=== PATIENT | female | born 1955 | race Caucasian/White ===

== ENCOUNTER 2022-09-22 17:12 | Inpatient (IN) | payer OTHER ==
[~2022-09-22] VITALS: Ht 152.4 cm; Wt 75.9 kg
--- NOTE | 2022-09-22 17:30 | NUR ---
C/O CHEST AND ABDOMINAL PAIN TODAY,SEEN AT AN URGENT CARE 3 DAYS AGO unable to care for self bs 170
--- NOTE | 2022-09-22 18:00 | NUR ---
RAILWAY SWITCH OPERATOR AT BEDSIDE FOR BLD COLLECTION
--- NOTE | 2022-09-22 18:04 | NUR ---
pt given water PO per dr ton milian
--- NOTE | 2022-09-22 18:11 | NUR ---
DR IRWIN NOTIFIED REGARDING LATEST VS
[2022-09-22 18:22] LABS: BASOPHILS # (AUTO) 0.1 K/uL (0.0-0.2); BASOPHILS % (AUTO) 0.2 % (0.0-2.0); HEMOGLOBIN 10.2 g/dL (11.5-14.8); MEAN CORPUSCULAR HGB CONC 31 g/dl (31.0-36.0)
[2022-09-22 18:28] LABS: EOSINOPHILS % (AUTO) 0.1 % (0.0-6.0); HEMATOCRIT 33 % (33-45); LYMPHOCYTES # (AUTO) 27.3 K/uL (0.8-4.8); LYMPHOCYTES % (AUTO) 55.3 % (20.0-44.0); MEAN CORPUSCULAR VOLUME 80 fL (82-100); MONOCYTES # (AUTO) 1.4 K/uL (0.1-1.30); MONOCYTES % (AUTO) 2.8 % (2.0-12.0); NEUTROPHILS # (AUTO) 20.6 K/uL (1.8-8.9); NEUTROPHILS % (AUTO) 41.6 % (43.0-81.0); PLATELET COUNT (AUTO) 115 K/uL (150-450); RED BLOOD CELL COUNT(AUTO) 4.16 MIL/uL (4.0-5.2)
[2022-09-22 18:30] LABS: CARBON DIOXIDE 16 mmol/L (21-32); CHLORIDE 94 mmol/L (98-107); CREATININE 1.9 mg/dL (0.6-1.3); GLUCOSE 81 mg/dL (74-106); POTASSIUM 4.6 mmol/L (3.5-5.1); SODIUM SERUM 130 mmol/L (136-145)
[2022-09-22] MEDS ORDERED: IV NS 0.9% 1,000 ML BAG IV ONE ×3 (18:30→21:30)
[2022-09-22 18:33] LABS: UREA NITROGEN, BLOOD 104 mg/dL (7-18); WHITE BLOOD COUNT (AUTO) 49.5 K/uL (4.3-11.0)
[2022-09-22 18:36] LABS: ALANINE AMINOTRANSFERASE 35 U/L (12-78); ALBUMIN 1.4 g/dL (3.4-5.0); ALKALINE PHOSPHATASE 278 U/L (46-116); ASPARTATE AMINOTRANSFERASE 202 U/L (15-37); BILIRUBIN,DIRECT 0.2 mg/dL (0.0-0.2); BILIRUBIN,TOTAL 0.4 mg/dL (0.2-1.0); LIPASE 61 U/L (73-393); TOTAL PROTEIN, SERUM 4.4 g/dL (6.4-8.2)
[2022-09-22] MEDS ORDERED: CITA20TA16 PO (18:46)
[2022-09-22] MEDS ORDERED: ATEN50TA PO (18:46)
[2022-09-22] MEDS ORDERED: ZOLP5TAB2 PO (18:46)
[2022-09-22] MEDS ORDERED: NAPR220C15 PO (18:46)
[2022-09-22] MEDS ORDERED: LISI-768 PO (18:46)
[2022-09-22] MEDS ORDERED: AMLO5TAB4 PO (18:46)
[2022-09-22 18:57] LABS: BAND % (MANUAL) 9 % (0.0-5.0); LYMPHOCYTES % (MANUAL) 18 % (16-48); METAMYELOCYTES % 1 % (0-0); MONOCYTES % (MANUAL) 4 % (0-11.0); MYELOCYTES % 4 % (0-0); NEUTROPHILS % (MANUAL) 64 (42-76)
--- NOTE | 2022-09-22 19:10 | NUR ---
MOVE SHEET SUBMITTED.
--- NOTE | 2022-09-22 19:13 | NUR ---
GARVEY CATH PLACED, COLLECTED URINE, SENT TO LAB
[2022-09-22] MEDS ORDERED: ACETAMINOPHEN ES 500 MG TABLET PO ONE (19:30)
[2022-09-22] MEDS ORDERED: ACETAMINOPHEN ES 500 MG TABLET ONE (19:34)
[2022-09-22 19:45] LABS: BILIRUBIN,URINE 2+ (NEGATIVE); COLOR,URINE DARK YELLOW (YELLOW); LEUKOCYTE ESTERASE ,URINE NEGATIVE (NEGATIVE); NITRITE, URINE NEGATIVE (NEGATIVE); PROTEIN,URINE 2+ mg/dl (NEGATIVE); UGLUCOSE NEGATIVE (NEGATIVE)
[2022-09-22] MEDS ORDERED: IV NS 0.9% 250 ML IV ONE (19:47)
[2022-09-22] MEDS ORDERED: IOHEXOL-350 100 ML VIAL IV ONE (19:47)
--- NOTE | 2022-09-22 19:47 | NUR ---
covid antigen swab collected, sent to lab
--- NOTE | 2022-09-22 19:55 | NUR ---
pt taken to ct via froylan
[2022-09-22 20:02] LABS: BACTERIA,URINE 2+ /HPF (None Seen); HYALINE CASTS, URINE Moderate /LPF (None Seen); MUCUS,URINE Moderate /LPF (None Seen); RBC,URINE 0-2 /HPF (0-2)
[2022-09-22] MEDS ORDERED: AZITHROMYCIN 500 MG in IV D5W 250 ML IV ONE (20:30)
[2022-09-22] MEDS ORDERED: PIPERACILLIN /TAZOBACTAM 3.375 G in IV D5W 50 ML IV ONE (20:30)
[2022-09-22] MEDS ORDERED: VANCOMYCIN 1 GM in IV D5W 250 ML IV ONE (20:30)
[2022-09-22] MEDS ORDERED: AZITHROMYCIN 500 MG VIAL ONE (20:31)
[2022-09-22] MEDS ORDERED: VANCOMYCIN 1 GM /D5W 250 ML PB IV ONE (20:31)
[2022-09-22] MEDS ORDERED: PIPERACI/TAZO 3.375GM/D5W 50ML PB IV ONE (20:32)
--- NOTE | 2022-09-22 20:42 | NUR ---
RM 110
--- NOTE | 2022-09-22 20:54 | NUR ---
CALL [facility] ANSWERING SERVICE FOR PEER TO PEER AND ADMISSION WITH DR FOSTER. SHE WILL HAVE US CONNECTED TO DR FOSTER
--- NOTE | 2022-09-22 21:06 | NUR ---
PEER TO PEER DONE BETWEEN DR FOSTER AND DR IRWIN
--- NOTE | 2022-09-22 22:54 | NUR ---
Pt transferred to [facility] via acls, accompanied by blaze Blake and EMT
[2022-09-22 23:00] VITALS: BP 91/31; TEMP 97.8; O2SAT 95
--- NOTE | 2022-09-22 23:00 | NUR ---
[facility] RN NOTES Admitted a 67 Y/O FEMALE A/OX3-4 ABLE TO MAKE NEEDS KNOWN ,LIVES ALONE , FROM HOME ADMITTED WITH ADMITTING DX OF SEPSIS , PTS IS UNDER RAZIGIE PLATING TANK OPERATOR OF DR SYDNIE ALEXANDRE . ADMISSION ROUTINE CARE RENDERED ASSESSMENT FROM HEAD TO TOE DONE NOTED WITH JEAN-PIERRE UNDERBREAST REDNESS , AND HEMORRHOIDS .V/S BP 91/39 ON 3LITERS VIA NC O2 SAT 88%, PTS WAS PLACE ON 10 LITERS VIA SIMPLE MASK , PTS WITH NKDA , NO PERTINENT HISTORY WITH IV PERIPHERAL ON LEFT AC g#20 AND LEFT HAND g#22 INTACT AND PATENT .WITH F/C INTACT AND PATENT DRAINING WITH YELLOWISH URINE OUTPUT , KEPT PTS COMFORTABLE AND DRY, WAITING FOR RAZIGIE ADMISSION ORDER.WILL CONTINUE TO MONITOR PTS.
--- NOTE | 2022-09-22 23:05 | NUR ---
report given to Christopher JORDAN
[2022-09-23] VITALS (29 sets, daily range): BP systolic 78–105; BP diastolic 35–56; TEMP 97.5–98.2; O2SAT 92–97
--- NOTE | 2022-09-23 | NUR ---
[facility] RN NOTES SPOKE TO DR PAUL RELAYED PTS CONDITION ,BP 88/44 WITH ORDER NOTED , CEFEPIME 1 GRAM Q 12HRS, IVF NS 125CC/HR ,[facility] STATUS DX SEPSIS , AZITHROMYCIN 500MG IV Q DAILY .VANCO TO BE DOSE BY PHARMACY . DIET 2 GRAMS SODIUM , NORCO 5/325 Q 4HRS PRN FOR MODERATE PAIN , NORCO 10/325 Q 4HRS PRN FOR SEVERE PAIN /ZOFRAN 4MG IV Q 6HRS PRN FOR N/V TYLENOL 650MG Q 4HRS PO FOR MILD PAIN OR FEVER . ALL ORDER NOTED A ND CARRIED OUT.WILL CONTINUE TO MONITOR PTS.
[2022-09-23] MEDS ORDERED: ACETAMINOPHEN 325 MG TABLET PO PRN (00:30)
[2022-09-23] MEDS ORDERED: CEFEPIME 1 GM VIAL IM SCH (00:30)
[2022-09-23] MEDS ORDERED: HYDROCODONE/APAP 10/325MG TABLET PO PRN (00:30)
[2022-09-23] MEDS ORDERED: ONDANSETRON HCL/PF 4 MG/2 ML VIAL IV PRN (00:30)
[2022-09-23] MEDS ORDERED: HYDROCODONE/APAP 5/325MG TABLET PO PRN (00:30)
[2022-09-23] MEDS ORDERED: CEFEPIME 1 GM in IV D5W 50 ML IV SCH (01:00)
[2022-09-23] MEDS ORDERED: CEFEPIME 1 GM VIAL IM ONE (01:00)
[2022-09-23] MEDS: IV NS 0.9% 1,000 ML IV PRN ×3 (01:13→17:53)
[2022-09-23] MEDS ORDERED: CEFEPIME 1 GM VIAL ONE (01:19)
--- NOTE | 2022-09-23 01:39 | NUR ---
[facility] RN NOTES SPOKE TO DR PAUL BLOOD PRESURE RELAYED AT 1AM 85/33 ON 8LI VIA FACEMASK AT 97% WITH ORDER TO GIVE NS 500MLVIA BOLUS ORDER NOTED AND CARRIED OUT.PTS AWAKE ALERT X3
--- NOTE | 2022-09-23 01:43 | NUR ---
[facility] RN NOTES SPOKE TO DR PAUL WITH ORDER TO D/C NS 500ML BOLUS INSTEAD GIVE ALBUMIN 50GRAMS IV X1 NOW ORDER NOTED AND CARRIED OUT.
[2022-09-23] MEDS ORDERED: ALBUMIN 25% 50 GM in PREMIX 1 EA IV ONE (02:00)
[2022-09-23] MEDS ORDERED: ALBUMIN 25% 200 ML IV ONE (02:25)
--- NOTE | 2022-09-23 02:30 | NUR ---
alberto rn notes pts c/o of nauseated zofran 4mg given ivp given as ordered with effect
--- NOTE | 2022-09-23 03:07 | NUR ---
alberto rn notes spoke to dr singh update him with pts condition bp at this time still 88/39 on 8 liters on 02 via simple mask at 97%saturation
--- NOTE | 2022-09-23 03:24 | NUR ---
RN NOTES UNABLE TO SCAN ALBUMIN BOTTLE BUT GIVEN 4 BOTTLES TOTAL OF 50 GRAMS ORDERED.
--- NOTE | 2022-09-23 05:59 | NUR ---
[facility] RN NOTES PTS REMAIN IN BED AWAKE ALERT AND RESPONSIVE NO SOB NO DISTRESS NOTED , REMAINS ON 8 LITERS VIA SIMPLE MASK SATING 98% , ON IVF OF NS AT 125CC/HR ON PROGRESS , WELL TOLERATED BY PTS. BLOOD PRESSURE 91 /41 ,WILL ENDORSE TO RN DAY SHIFT FOR CONTINUITY OF CARE
[2022-09-23 07:10] LABS: BASOPHILS # (AUTO) 0.2 K/uL (0.0-0.2); BASOPHILS % (AUTO) 0.3 % (0.0-2.0); EOSINOPHILS % (AUTO) 0.7 % (0.0-6.0); HEMATOCRIT 30 % (33-45); HEMOGLOBIN 8.6 g/dL (11.5-14.8); LYMPHOCYTES # (AUTO) 28.4 K/uL (0.8-4.8); LYMPHOCYTES % (AUTO) 54.8 % (20.0-44.0); MEAN CORPUSCULAR HGB CONC 29 g/dl (31.0-36.0); MEAN CORPUSCULAR VOLUME 85 fL (82-100); MONOCYTES # (AUTO) 1.3 K/uL (0.1-1.30); MONOCYTES % (AUTO) 2.5 % (2.0-12.0); NEUTROPHILS # (AUTO) 21.6 K/uL (1.8-8.9); NEUTROPHILS % (AUTO) 41.7 % (43.0-81.0); PLATELET COUNT (AUTO) 94 K/uL (150-450); RED BLOOD CELL COUNT(AUTO) 3.54 MIL/uL (4.0-5.2)
--- NOTE | 2022-09-23 07:20 | NUR ---
[facility] RN OPENING NOTES RECEIVED REPORT FROM ANYA JORDAN, PTS REMAIN IN BED AWAKE ALERT AND RESPONSIVE NO SOB NO DISTRESS NOTED , REMAINS ON 8 LITERS VIA SIMPLE MASK SATING 96%, BP 86/38, ON IVF OF NS AT 125CC/HR RUNNING, IV ACCESS PATENT AND INTACT, FLUSHES WELL. FC PATENT AND INTACT WITH CLEAR YELLOW URINE DRAINING VIA GRAVITY. SAFETY MEASURES IN PLACED. ON TELE MONITOR SR 80'S. CALL LIGHT WITHIN REACH. WILL CONTINUE PLAN OF CARE.
[2022-09-23 07:40] LABS: ALBUMIN 2.4 g/dL (3.4-5.0); BILIRUBIN,TOTAL 0.6 mg/dL (0.2-1.0); CALCIUM, SERUM 7.3 mg/dL (8.5-10.1); CREATININE 1.9 mg/dL (0.6-1.3); MAGNESIUM 2.3 mg/dL (1.8-2.4); PHOSPHORUS 6.3 mg/dL (2.5-4.9); POTASSIUM 3.9 mmol/L (3.5-5.1); TOTAL PROTEIN, SERUM 4.8 g/dL (6.4-8.2)
--- NOTE | 2022-09-23 07:43 | NUR ---
NOTED BP 84/37 HR 85 02 SAT 96% @8LPM VIA SIMPLE MASK, INFORMED DR. OTOOLE AWAITING FOR ORDERS.
--- NOTE | 2022-09-23 07:44 | NUR ---
RECEIVED NEW ORDER FROM DR. OTOOLE TRANSFER PATIENT TO ICU DUE TO LOW BP, MIDODRINE 10MG PO TID, LEVOPHED AND PICC LINE, NOTED AND CARRIED OUT. INFORMED CHARGE NURSE CLARISSA AND LOCATION MANAGER.
[2022-09-23 07:46] LABS: WHITE BLOOD COUNT (AUTO) 51.9 K/uL (4.3-11.0)
--- NOTE | 2022-09-23 07:57 | NUR ---
TRANSFERRED PATIENT TO ICU ROOM 253 VIA ACLS, GAVE REPORT TO MIRI JORDAN.
--- NOTE | 2022-09-23 08:00 | NUR ---
ICU/RN PT TRANSFERED FROM TELE UNIT DUE TO LOW BP-82/38. AFEBRILE.NO PAIN REPORTED AT THIS TIME ON 8L SIMPLE MASK.SAT O2-99%.PT IS AWAKE ,ALERT,ORIENTED. IV FLUIDS STARTED ORDERED. F/C IN PLACE DRAINING WITH MINIMAL AMOUNT OF URINE. PT IS VERY WEAK. LABS REVIEW . AWARE.
[2022-09-23] MEDS: MIDODRINE HCL (5MG) 5 MG TABLET PO SCH ×3 (08:19→17:00)
[2022-09-23] MEDS: CITALOPRAM HYDROBROMIDE 20 MG TABLET PO SCH (08:19)
[2022-09-23] MEDS ORDERED: CITALOPRAM HYDROBROMIDE 20 MG TABLET PO SCH (09:00)
[2022-09-23] MEDS ORDERED: CEFEPIME 1 GM VIAL IV SCH (09:00)
[2022-09-23] MEDS ORDERED: CEFEPIME 2 GM in IV D5W 100 ML IV SCH (09:00)
[2022-09-23] MEDS: PANTOPRAZOLE 40 MG VIAL IV SCH (09:47)
[2022-09-23] MEDS: ONDANSETRON HCL/PF 4 MG/2 ML VIAL IV PRN ×2 (09:57→21:39)
--- NOTE | 2022-09-23 10:00 | NUR ---
ICU/RN PT C/O OF NAUSEA. ZOFRAN IV GIVEN ORDERED.
[2022-09-23 10:44] LABS: BAND % (MANUAL) 12 % (0.0-5.0); LYMPHOCYTES % (MANUAL) 50 % (16-48); MONOCYTES % (MANUAL) 3 % (0-11.0); MYELOCYTES % 2 % (0-0); NEUTROPHILS % (MANUAL) 33 (42-76)
[2022-09-23] MEDS: NOREPINEPHRINE 8 MG in IV NS 0.9% 242 ML IV PRN (11:15)
--- NOTE | 2022-09-23 11:30 | NUR ---
ICU/RN BP LOW LEVOPHED IV STARTED ORDERED.
[2022-09-23] MEDS ORDERED: PIPERACILLIN /TAZOBACTAM 3.375 G in IV D5W 50 ML IV SCH (12:00)
[2022-09-23] MEDS: ZOSYN IVPB 2.25 G in IV D5W 50ml IV SCH ×3 (12:32→23:43)
[2022-09-23] MEDS ORDERED: VANCOMYCIN 0.75 GM in IV D5W 250 ML IV SCH (18:00)
[2022-09-23] MEDS ORDERED: AZITHROMYCIN 500 MG in IV D5W 250 ML IV SCH (21:00)
[2022-09-24] VITALS (46 sets, daily range): BP systolic 79–118; BP diastolic 37–73; TEMP 97.3–98.4; O2SAT 89–97
[2022-09-24] MEDS: IV NS 0.9% 1,000 ML IV PRN ×2 (03:25→11:46)
[2022-09-24 05:13] LABS: BASOPHILS # (AUTO) 0.1 K/uL (0.0-0.2); BASOPHILS % (AUTO) 0.4 % (0.0-2.0); EOSINOPHILS % (AUTO) 0.2 % (0.0-6.0); HEMATOCRIT 26 % (33-45); HEMOGLOBIN 7.8 g/dL (11.5-14.8); LYMPHOCYTES # (AUTO) 16.5 K/uL (0.8-4.8); LYMPHOCYTES % (AUTO) 51.3 % (20.0-44.0); MEAN CORPUSCULAR HGB CONC 31 g/dl (31.0-36.0); MEAN CORPUSCULAR VOLUME 81 fL (82-100); MONOCYTES # (AUTO) 0.9 K/uL (0.1-1.30); MONOCYTES % (AUTO) 2.8 % (2.0-12.0); NEUTROPHILS # (AUTO) 14.6 K/uL (1.8-8.9); NEUTROPHILS % (AUTO) 45.3 % (43.0-81.0); PLATELET COUNT (AUTO) 87 K/uL (150-450); RED BLOOD CELL COUNT(AUTO) 3.16 MIL/uL (4.0-5.2)
[2022-09-24 05:28] LABS: ALANINE AMINOTRANSFERASE 36 U/L (12-78); ALKALINE PHOSPHATASE 296 U/L (46-116); ASPARTATE AMINOTRANSFERASE 243 U/L (15-37); BILIRUBIN,TOTAL 0.8 mg/dL (0.2-1.0); CALCIUM, SERUM 8.1 mg/dL (8.5-10.1); CARBON DIOXIDE 13 mmol/L (21-32); CHLORIDE 100 mmol/L (98-107); CREATININE 2.7 mg/dL (0.6-1.3); GLUCOSE 100 mg/dL (74-106); POTASSIUM 4.2 mmol/L (3.5-5.1); SODIUM SERUM 133 mmol/L (136-145); TOTAL PROTEIN, SERUM 4.5 g/dL (6.4-8.2)
[2022-09-24] MEDS: NOREPINEPHRINE 8 MG in IV NS 0.9% 242 ML IV PRN ×2 (05:29→17:07)
[2022-09-24] MEDS: ZOSYN IVPB 2.25 G in IV D5W 50ml IV SCH ×3 (05:30→17:05)
[2022-09-24 05:31] LABS: WHITE BLOOD COUNT (AUTO) 32.1 K/uL (4.3-11.0)
[2022-09-24 05:33] LABS: UREA NITROGEN, BLOOD 102 mg/dL (7-18)
--- NOTE | 2022-09-24 07:45 | NUR ---
ICU/RN PT IS ON SIMPLE MASK 10L,SAT O2-90-91%.ON LEVOPHED DRIP AND IV FLUIDS.F/C IN PLACE WITH NO URINE OUTPUT.LABS REVIEW. NOTIFIED.
--- NOTE | 2022-09-24 08:21 | NUR ---
RN CLOSING NOTES RECEIVED PATIENT 6LC, SPO2 90% INCREASED TO 10L SM. TACHYPNEIC. A/OX4. SINUS RHYTHM ON THE MONITOR. PRN ZOFRAN GIVEN X1 FOR NAUSEA. GARVEY CATHETER PRESENT, OLIGURIC, 100ML OUT. NO BM. PENDING STOOL COLLECTION. ANGELICA WITH LEVO AT 0.1MCG. ABX GIVEN ORDERED. PLAN FOR CT ABD/PELVIS.
[2022-09-24] MEDS: MIDODRINE HCL (5MG) 5 MG TABLET PO SCH ×3 (09:21→17:31)
[2022-09-24] MEDS: PANTOPRAZOLE 40 MG VIAL IV SCH (09:22)
[2022-09-24] MEDS: CITALOPRAM HYDROBROMIDE 20 MG TABLET PO SCH (09:22)
[2022-09-24 10:00] LABS: ABG BASE EXCESS -15.3 mmol/L; ABG OXYGEN SATURATION 88.3 % (92.0-98.5); ABG PCO2 26.1 mmHg (35.0-45.0); ABG PH 7.231 (7.350-7.450); ABG PO2 63.6 mmHg (75.0-100.0); AaDO2 335.5 mmHg; COHb 0.2 % (0.5-1.5); MetHb 0.7 % (0.0-1.5); O2Hb 87.5 % (94.0-97.0); SITE, ABG Right Radial; VENT MODE, BG SIMPLE MASK
--- NOTE | 2022-09-24 10:30 | NUR ---
RT Note Pt placed on BiPAP post ABG per Dr Dwyer. Settings as order, alarm set and audible. Pt tolerating BiPAP well. RN aware. Addendum: 09/24/22 at 1209 by CARLOS CARBAJAL RT Amended: Links added.
--- NOTE | 2022-09-24 10:45 | NUR ---
ICU/RN PT HAS SOB ON 10L SIMPLE MASK SAT O2-90%.ABG DONE.PT PLACED ON BI-PAP.LASIX 20 MG IV GIVEN ORDERED.
[2022-09-24] MEDS ORDERED: FUROSEMIDE 20 MG/2 ML VIAL IV SCH (11:00)
--- NOTE | 2022-09-24 11:00 | NUR ---
ICU/RN IV FLUIDS DECREASED ORDERED.BLOOD CULTURE DONE REPOSITION FOR COMFORT.REDNEDSS ON THE LOWER BACK NOTED.[facility] MATRASS ORDERED.
[2022-09-24 11:54] LABS: BAND % (MANUAL) 11 % (0.0-5.0); BASOPHILS % (MANUAL) 0 % (0.0-2.0); EOSINOPHILS % (MANUAL) 0 % (0-4); LYMPHOCYTES % (MANUAL) 48 % (16-48); MONOCYTES % (MANUAL) 6 % (0-11.0); NEUTROPHILS % (MANUAL) 35 (42-76)
--- NOTE | 2022-09-24 13:20 | NUR ---
ABG DONE RESULTS CALLED TO DR. MARIO. COPY PLACED IN CHART AT NURSES STATION. RN AWARE ABG RESULTS NOT IN [facility].
[2022-09-24] MEDS: Z GUARD REMEDY 4 OZ OINT TP SCH (15:13)
--- NOTE | 2022-09-24 18:00 | NUR ---
ICU/RN PM CARE PROVIDED . DUE MEDS ARE GIVEN ORDERED.PT IS ON BIPAP.[id number]%.ST O2-96%.ON LEVOPHED DRIP.NO URINE OUTPUT.FOR 12 HRS .MD AWARE. CVP-9.GENERALIZED EDEMA PRESENT. CONTINUE MONITORING.
--- NOTE | 2022-09-24 19:00 | NUR ---
CVP LINE INTACT RIGHT UPPER ARM INTACT 10MMHG
--- NOTE | 2022-09-24 19:00 | NUR ---
1900 received in bed , able to answer to name and rain questions lungs clear diminished at bases, abdominal sound hypoactive able to move all extremities, weakness noted on Levophed 0.2 mcg SBP is above 90, 109/59 temp 98.3 axiliary bipap rate 12 , 18/8 60% fi02 saturation is 95% 2100patient in anxious , said she feels pain general and hip call md Carbajal for pain medication gave pain medication , turned and mouth care done patient resting comfortable
--- NOTE | 2022-09-24 19:41 | NUR ---
RT NOTE PT RECEIVED ON BIPAP WITH SETTINGS 18/8, 12, 60%. MASK SECURED WITH MEPILEX. ALARMS ON AND AUDIBLE. BIPAP PLUGGED TO RED OUTLET. NO RESPIRATORY DISTRESS NOTED. WILL CONTINUE TO MONITOR CLOSELY.
[2022-09-24] MEDS ORDERED: POTASSIUM CHLORIDE 20 MEQ TAB.PRT.SR PO ONE (20:00)
[2022-09-24] MEDS ORDERED: K PHOS NEUTRAL 250 MG TABLET PO ONE (20:00)
[2022-09-24] MEDS: MORPHINE SULFATE INJ 2 MG/ML DISP.SYRIN IV PRN (21:31)
[2022-09-25] VITALS (32 sets, daily range): BP systolic 44–141; BP diastolic 16–86; TEMP 97.3–99; O2SAT 69–100
[2022-09-25] MEDS ORDERED: LORAZEPAM INJ 2 MG/ML VIAL IV PRN (01:00)
--- NOTE | 2022-09-25 01:40 | NUR ---
patient agitated and pulling bipap and calling names , try to redirect no success Ativan given 0.5 mg iv patient resting comfortable
[2022-09-25] MEDS ORDERED: ALBUMIN 25% 50 GM in PREMIX 1 EA IV ONE (02:00)
[2022-09-25] MEDS: IV NS 0.9% 1,000 ML IV PRN (02:38)
[2022-09-25] MEDS: MORPHINE SULFATE INJ 2 MG/ML DISP.SYRIN IV PRN (05:11)
[2022-09-25] MEDS: NOREPINEPHRINE 8 MG in IV NS 0.9% 242 ML IV PRN ×8 (05:12→23:53)
[2022-09-25 05:32] LABS: ABG BASE EXCESS -20.9 mmol/L; ABG OXYGEN SATURATION 96.5 % (92.0-98.5); ABG PCO2 21.1 mmHg (35.0-45.0); ABG PH 7.119 (7.350-7.450); ABG PO2 108.7 mmHg (75.0-100.0); AaDO2 295.9 mmHg; COHb 0.1 % (0.5-1.5); MetHb 0.9 % (0.0-1.5); O2Hb 95.5 % (94.0-97.0); SITE, ABG Left Radial
[2022-09-25] MEDS: ZOSYN IVPB 2.25 G in IV D5W 50ml IV SCH ×6 (05:35→23:51)
[2022-09-25 05:42] LABS: ALBUMIN 1.8 g/dL (3.4-5.0); BILIRUBIN,TOTAL 1.2 mg/dL (0.2-1.0); CALCIUM, SERUM 8.5 mg/dL (8.5-10.1); CREATININE 3.4 mg/dL (0.6-1.3); TOTAL PROTEIN, SERUM 4.6 g/dL (6.4-8.2)
[2022-09-25] MEDS ORDERED: VANCOMYCIN 0.75 GM in IV D5W 250 ML IV SCH (06:00)
--- NOTE | 2022-09-25 06:44 | NUR ---
called md douglas regarding lactic acid 6.3 was 3.0, new order given to increased ns to 100cc/hr
--- NOTE | 2022-09-25 07:20 | NUR ---
PATIENT SEEN AT BEDSIDE. PATIENT LESS RESPONSIVE THAN BASELINE. LETHARGIC, TACHYPNEIC 30'S ON BIPAP. ABG RESULTS FORWARDED TO PULMONOLOGY MIXER SLAGMAN ROD MARIO. UPDATED WITH PATIENT CURRENT CONDITION. OBTAINED ORDERS FOR BICARB 2 AMPS IVP START, BICARB 3 AMPS GTT , PREPARE FOR INTUBATION.
[2022-09-25] MEDS ORDERED: Sodium Bicarbonate 150 MEQ in IV D5W 1,000 ML IV PRN ×2 (07:30→18:00)
[2022-09-25] MEDS ORDERED: SODIUM BICARBONATE SYR 50 MEQ/50 ML DISP.SYRIN IV ONE ×2 (07:30→19:00)
--- NOTE | 2022-09-25 07:35 | NUR ---
DR. FREDERICK ON ROUNDS, MD AWARE OF PATIENT PLAN OF CARE.
[2022-09-25] MEDS ORDERED: Sodium Bicarbonate 150 MEQ in IV D5W 1,000 ML IV SCH (08:00)
--- NOTE | 2022-09-25 08:00 | NUR ---
EMERGENCY VAS CATH PLACEMENT TO INITIATE HD PER DR. JOSUE. MADE AWARE THAT DR. MARIO CAN DO PROCEDURE AFTER INTUBATION.
--- NOTE | 2022-09-25 08:53 | NUR ---
RT PATIENT ORALLY INTUBATED BY DR ROD MARIO WITH A 7.5 ETT SECURED AT 24CM AT THE LIP. ETT SECURED VIA ANCHOR FAST. POSITIVE CO2 DETECTOR COLOR CHANGE NOTED. BILAT BREATH SOUNDS AUSCULTATED. BILAT CHEST RISE NOTED. AIRWAY SUCTIONED AND PATENT. PLACED ON [facility] VENT WITH SETTINGS PER DR MARIO. AC26, 450, 100% +5. VENT ALARMS CHECKED + AUDIBLE. VENT PLUGGED INTO RED OUTLET. AMBU BAG AT HOB. CONT CURRENT PLAN OF RESP CARE. Addendum: 09/25/22 at 0909 by MARK REYNAGA RT Amended: Links added.
[2022-09-25] MEDS: MIDODRINE HCL (5MG) 5 MG TABLET PO SCH ×3 (09:00→17:00)
[2022-09-25] MEDS: CITALOPRAM HYDROBROMIDE 20 MG TABLET PO SCH (09:00)
[2022-09-25] MEDS: Z GUARD REMEDY 4 OZ OINT TP SCH ×2 (09:00→20:58)
[2022-09-25] MEDS: PROPOFOL 100 ML IV PRN ×2 (09:05→21:03)
[2022-09-25] MEDS: PANTOPRAZOLE 40 MG VIAL IV SCH (10:13)
[2022-09-25 10:59] LABS: ABG BASE EXCESS -19.6 mmol/L; ABG OXYGEN SATURATION 97.7 % (92.0-98.5); ABG PCO2 28.2 mmHg (35.0-45.0); ABG PH 7.101 (7.350-7.450); ABG PO2 132.9 mmHg (75.0-100.0); AaDO2 551.9 mmHg; COHb 0.3 % (0.5-1.5); MetHb 0.9 % (0.0-1.5); O2Hb 96.5 % (94.0-97.0); SITE, ABG Right Radial
[2022-09-25] MEDS ORDERED: ETOMIDATE 2 MG/ML VIAL IV ONE (11:58)
[2022-09-25] MEDS ORDERED: ROCURONIUM BROMIDE 50 MG/5 ML IV ONE (11:59)
[2022-09-25] MEDS ORDERED: ALBUMIN 25% 25 GM in PREMIX 1 EA IV PRN (13:00)
[2022-09-25] MEDS: IV NS 0.9% 250 ML IV PRN ×2 (13:46→15:11)
[2022-09-25] MEDS ORDERED: VANCOMYCIN 500 MG in IV D5W 100 ML IV PRN (14:30)
--- NOTE | 2022-09-25 16:27 | NUR ---
PATIENT RECEIVED VISITOR IDENTIFYING HIMSELF THE PATIENTS' EX-, JOSIAH. PER EX-, HE WAS MADE AWARE OF THE PATIENTS' HOSPITALIZATION FROM THE PATIENTS ARBORER, HE IS LISTED AN EMERGENCY CONTACT. LEFT HIS CONTACT NUMBER
[2022-09-25 17:39] LABS: ABG BASE EXCESS -20.2 mmol/L; ABG OXYGEN SATURATION 94.2 % (92.0-98.5); ABG PH 7.113 (7.350-7.450); AaDO2 241.5 mmHg; COHb 0.3 % (0.5-1.5); MetHb 0.9 % (0.0-1.5); O2Hb 93.1 % (94.0-97.0); SITE, ABG Right Radial
--- NOTE | 2022-09-25 19:00 | NUR ---
CARE ENDORSED TO NIGHTSHIFT JULIAN SMITH FOR CONTINUATION OF CARE.
--- NOTE | 2022-09-25 19:10 | NUR ---
Pt is noted nonverbal due to ETT to Vent therapy as report is received from the off going RN . Sinus Rhythm on the Tele monitor, Rhonchi Lungs sound with ETT 7.07/22 to Vent therapy and setting are AC, 26, 450, FI02 50% and PEE 5 and pt is due for an ABGS at 2300 as ordered. Skin dry, warm with skin areas noted, please see skin assessment in chart . Pt is noted NPO with OG-Tube in place but clamped, Yang Cath with no Urine at these hour and S/P Hemodialysis with 1Liter output noted during the day shift, also noted with Right Upper Arm PICC Line. Pt care continue with IVF Na Bicarb at 100ML/HR, LEVO at 0.6 and Propofol at 30Mcg with Antibiotic IVPB therapy around the clock as ordered while monitor closely and stool will be sent to Lab to R/O C.Diff during the shift.
--- NOTE | 2022-09-25 19:50 | NUR ---
RT NOTE PT RECEIVED INTUBATED AT 7.5 ET TUBE @ 24 LIP LINE. VENT SETTINGS AC 26, 450, 60%, +0. AMBU BAG @ BEDSIDE. BILATERAL CHEST RISE NOTED. SUCTION DONE, ET TUBE SECURED AND PATENT. ALARMS ON AND AUDIBLE. INCREASED FIO2 TO 70% DUE TO LOW SPO2 @ 88%. RN SARAH @ BEDSIDE AND IS AWARE. WILL CONTINUE TO MONITOR CLOSELY.
--- NOTE | 2022-09-25 20:18 | NUR ---
Pt care continue as she is been suction as needed but still SAT 88% , RT is notify with FI02 it up to 70% now as awaits 2300 ABGS while monitor closely.
[2022-09-25 22:19] LABS: ABG BASE EXCESS -21.4 mmol/L; ABG OXYGEN SATURATION 82.3 % (92.0-98.5); ABG PCO2 24.6 mmHg (35.0-45.0); ABG PH 7.065 (7.350-7.450); ABG PO2 62.6 mmHg (75.0-100.0); AaDO2 410.1 mmHg; COHb 0.2 % (0.5-1.5); MetHb 1.3 % (0.0-1.5); O2Hb 81.1 % (94.0-97.0); PEEP,BG 0 cm H2O; SITE, ABG Left Radial
[2022-09-25] MEDS ORDERED: PHENYLEPHRINE 100 MG in IV NS 0.9% 240 ML IV PRN (23:00)
[2022-09-25] MEDS ORDERED: PHENYLEPHRINE 10 MG/ML VIAL ONE (23:10)
--- NOTE | 2022-09-25 23:29 | NUR ---
ICU/RN: CRITICAL ABG RELAYED TO DR. OTOOLE AWAITING CALL BACK. SECOND PRESSOR NORSYNEPHRINE ADDED FOR BP SUPPORT.
--- NOTE | 2022-09-25 23:57 | NUR ---
ICU/RN: CALL PLACED TO DR. OTOOLE'S ANSWERING SERVICE REGARDING CRITICAL ABG RESULTS AWAITING CALL BACK.
[2022-09-26] VITALS (10 sets, daily range): BP systolic 0–117; BP diastolic 0–59; TEMP 97; O2SAT 0–73
[2022-09-26] MEDS ORDERED: SODIUM BICARBONATE SYR 50 MEQ/50 ML DISP.SYRIN IV STA (00:02)
--- NOTE | 2022-09-26 00:04 | NUR ---
ICU/RN: SPOKE WITH DR. OTOOLE. UPDATE GIVEN ON CURRENT CONDITION. ABG RESULTS READ. NEW ORDERS FOR 2 AMPS SODIUM BICARB AND VASOPRESSIN FOR BP SUPPORT.
[2022-09-26] MEDS ORDERED: SODIUM BICARBONATE SYR 50 MEQ/50 ML DISP.SYRIN ONE (00:15)
--- NOTE | 2022-09-26 00:22 | NUR ---
MED NOTE: ALL MEDICATIONS ADMINISTERED UNDER VERIFIED DOSES.
[2022-09-26] MEDS ORDERED: VASOPRESSIN INJ 40 UNIT in IV NS 0.9% 38 ML IV PRN (00:30)
--- NOTE | 2022-09-26 01:09 | NUR ---
OSWALDO BLUE CALLED WITH ACLS FOLLOWED WITH ER MD. PT CARE CONTINUE.
--- NOTE | 2022-09-26 01:15 | NUR ---
A SECOND CODE BLUE CALLED WITH ACLS PROTOCOL FOLLOWED WITH ER MD AND STAFF. PT CARE CONTINUE. PT FAMILY FAMILY NOTIFY OFF CHANGE IN CONDITIONS.
[2022-09-26] MEDS ORDERED: VASOPRESSIN INJ 20 UNIT/ML VIAL ONE (01:36)
[2022-09-26 01:41] LABS: BASOPHILS # (AUTO) 0.1 K/uL (0.0-0.2); BASOPHILS % (AUTO) 0.3 % (0.0-2.0); LYMPHOCYTES % (AUTO) 49.2 % (20.0-44.0); MEAN CORPUSCULAR HGB CONC 33 g/dl (31.0-36.0); MEAN CORPUSCULAR VOLUME 88 fL (82-100); MONOCYTES # (AUTO) 0.3 K/uL (0.1-1.30); MONOCYTES % (AUTO) 2.1 % (2.0-12.0); NEUTROPHILS # (AUTO) 7.4 K/uL (1.8-8.9); NEUTROPHILS % (AUTO) 45.4 % (43.0-81.0); PLATELET COUNT (AUTO) 101 K/uL (150-450); WHITE BLOOD COUNT (AUTO) 16.2 K/uL (4.3-11.0)
--- NOTE | 2022-09-26 01:42 | NUR ---
Pt care continue as she has been code x2 now and DR. De La Cruz is been notify off critical Lab Level off K+ OFF 8.1 and H/H off 3.5/11 at these hour with orders noted to Notify DR. Bhakta to see if he will like to Dialyze Pt , also to orders stat PRBC [id number] Blood transfusion and given 60g per OG-Tube off Kayexalate.
[2022-09-26 01:47] LABS: CALCIUM, SERUM 10.1 mg/dL (8.5-10.1); CREATININE 3.1 mg/dL (0.6-1.3)
[2022-09-26 01:50] LABS: HEMATOCRIT 11 % (33-45); HEMOGLOBIN 3.5 g/dL (11.5-14.8)
[2022-09-26] MEDS: NOREPINEPHRINE 8 MG in IV NS 0.9% 242 ML IV PRN (01:50)
[2022-09-26 01:51] LABS: POTASSIUM 8.1 mmol/L (3.5-5.1)
[2022-09-26] MEDS ORDERED: SODIUM POLYSTYRENE SULFONATE 15 G/60 ML BOTTLE PO ONE (02:00)
--- NOTE | 2022-09-26 02:33 | NUR ---
THIRD CODE BLUE CALLED WITH ACLS PROTOCOL FOLLOWED WITH ER MD AND TEAM. PT CARE CONTINUE SHE HAS COMPLETED HER STAT FIRST UNIT OFF PRBC ORDERED BY DR. OTOOLE AFTER CRITICAL H/H OFF 3.07/[address] JOSUE WAS CALLED FOR A STAT HEMODIALYSIS REQUESTED BY DR. OTOOLE FOR A K+ LEVEL OFF 8.1 AFTER MEDICATED WITH KAYEXELALE 60MG PER OG-TUBE GIVEN BUT DR. JOSUE REFUSED TO ORDERED ANY HEMODIALYSIS PT IS NOW ON X3 PRESSERS AND HE STATED THAT DR. OTOOLE IS AWARE OFF HIS DECISIONS.
[2022-09-26 02:35] LABS: BILIRUBIN,TOTAL 1.9 mg/dL (0.2-1.0); CALCIUM, SERUM 9.4 mg/dL (8.5-10.1); CREATININE 3.2 mg/dL (0.6-1.3); MAGNESIUM 2.7 mg/dL (1.8-2.4); TOTAL PROTEIN, SERUM 3.4 g/dL (6.4-8.2)
--- NOTE | 2022-09-26 02:42 | NUR ---
CODE BLUE ENDED AFTER ER MD CALLED OUT CODE PT REMAIN ASYSTOLE WITH ALL ACLS PROTOCOL BEEN FOLLOWED.
[2022-09-26 02:43] LABS: POTASSIUM 8.4 mmol/L (3.5-5.1)
[2022-09-26 02:44] LABS: ALBUMIN 1.2 g/dL (3.4-5.0)
--- NOTE | 2022-09-26 03:00 | NUR ---
DECE FAMILY MR. RAHMAN IS CALLED AT [phone] BUT NO ANSWERED AT THIS HOUR DR. OTOOLE IS BEEN NOTIFY WELL HAIR BOILER.
[2022-09-26] MEDS ORDERED: SODIUM BICARBONATE SYR 50 MEQ/50 ML DISP.SYRIN IV ONE (03:29)
[2022-09-26] MEDS ORDERED: EPINEPHRINE (1:10,000) SYRINGE 1 MG/10 ML DISP.SYRIN IVP ONE (03:29)
[2022-09-26] MEDS ORDERED: DEXTROSE 50%-WATER 50 ML DISP.SYRIN IV ONE (03:29)
[2022-09-26] MEDS ORDERED: CALCIUM CHLORIDE 1,000 MG/10 ML DISP.SYRIN IV ONE (03:29)
--- NOTE | 2022-09-26 03:40 | NUR ---
ICU/RN: PT IS NOT CORONERS CASE. PT IS NOT A CANDIDATE FOR DONATION. [facility] [employer] CASE # [id number]. ONLY NEXT OF KIN INFORMATION IS PT EX- [id number]. UNABLE TO REACH AT THIS TIME. MESSAGE LEFT. PT WILL BE MOVED TO [facility] [place]. POST MORTEM CARE COMPLETE. Addendum: 09/26/22 at 0346 by LUIS JULES RN PT BELONGINGS SENT WITH PT TO [facility]. PT HAS BELONGINGS WELL IN [facility]. NURSING TECHNOLOGY PROJECT MANAGER NOTIFIED.
--- NOTE | 2022-09-26 04:20 | NUR ---
DECENT BODY IS BEEN TAKEN OFF THE UNIT BY SECURITY .
[2022-09-26 11:09] LABS: BAND % (MANUAL) 14 % (0.0-5.0); BASOPHILS % (MANUAL) 0 % (0.0-2.0); EOSINOPHILS % (MANUAL) 4 % (0-4); LYMPHOCYTES % (MANUAL) 41 % (16-48); MONOCYTES % (MANUAL) 6 % (0-11.0); NEUTROPHILS % (MANUAL) 35 (42-76)
== END 2022-09-26 03:30 | DRG 871 ==
LOC: ER 17:16 → TELE1 20:50 → TELE-TD 09-23 03:58 → ICU 09-23 07:59
PROVIDERS: ADMIT Internal Medicine; ATTEND Internal Medicine
PROC: 02HV33Z Insertion of Infusion Device into Superior Vena Cava, Percutaneous Approach (ICD-10-PCS; principal; 2022-09-23)
PROC: B548ZZA Ultrasonography of Superior Vena Cava, Guidance (ICD-10-PCS; 2022-09-23)
PROC: 5A09357 Assistance with Respiratory Ventilation, Less than 24 Consecutive Hours, Continuous Positive Airway Pressure (ICD-10-PCS; 2022-09-24)
PROC: 0BH17EZ Insertion of Endotracheal Airway into Trachea, Via Natural or Artificial Opening (ICD-10-PCS; 2022-09-25)
PROC: 5A1935Z Respiratory Ventilation, Less than 24 Consecutive Hours (ICD-10-PCS; 2022-09-25)
PROC: 05HM33Z Insertion of Infusion Device into Right Internal Jugular Vein, Percutaneous Approach (ICD-10-PCS; 2022-09-25)
PROC: B543ZZA Ultrasonography of Right Jugular Veins, Guidance (ICD-10-PCS; 2022-09-25)
PROC: 5A1D70Z Performance of Urinary Filtration, Intermittent, Less than 6 Hours Per Day (ICD-10-PCS; 2022-09-25)
PROC: 30233N1 Transfusion of Nonautologous Red Blood Cells into Peripheral Vein, Percutaneous Approach (ICD-10-PCS; 2022-09-26)
DX: A41.9 Sepsis, unspecified organism (principal); G93.41 Metabolic encephalopathy; J69.0 Pneumonitis due to inhalation of food and vomit; R65.21 Severe sepsis with septic shock; J96.01 Acute respiratory failure with hypoxia; N17.0 Acute kidney failure with tubular necrosis; I50.31 Acute diastolic (congestive) heart failure; N39.0 Urinary tract infection, site not specified; E87.20 Acidosis, unspecified; E22.2 Syndrome of inappropriate secretion of antidiuretic hormone; I13.0 Hypertensive heart and chronic kidney disease with heart failure and stage 1 through stage 4 chronic kidney disease, or unspecified chronic kidney disease; J98.11 Atelectasis; Z20.822 Contact with and (suspected) exposure to COVID-19; B96.1 Klebsiella pneumoniae [K. pneumoniae] as the cause of diseases classified elsewhere; K52.9 Noninfective gastroenteritis and colitis, unspecified; N18.9 Chronic kidney disease, unspecified; D50.9 Iron deficiency anemia, unspecified; D69.6 Thrombocytopenia, unspecified; D72.820 Lymphocytosis (symptomatic); E86.0 Dehydration; E87.5 Hyperkalemia; E88.09 Other disorders of plasma-protein metabolism, not elsewhere classified; F32.A Depression, unspecified; I46.9 Cardiac arrest, cause unspecified; K44.9 Diaphragmatic hernia without obstruction or gangrene; Z79.899 Other long term (current) drug therapy; E66.9 Obesity, unspecified
CPT/HCPCS: 31720; 36415; 36600; 71045-TC; 80048-TC; 80053-TC; 80076-TC; 80202-TC; 81001; 82533; 82803-TC; 82962-TC; 83010; 83605-TC; 83690-TC; 83735-TC; 83880; 84100-TC; 84484-TC; 85025-TC; 85385-TC; 85396; 85610-TC; 86850-TC; 87040-TC; 87086-TC; 90935-TC; 92950-TC; 93307-TC; 94003-TC; 94799-TC; A4216; A4223; A6403; C9113; C9803; G0378; J0456; J0692; J1940; J2060; J2270; J2370; J2405; J2543; J3370; J3490; J7030; J7040; J7050; J7060; J7070; P9016; P9047; Q9967